=== PATIENT | male | born 1995 | race Caucasian/White ===

== ENCOUNTER 2019-06-18 23:02 | Emergency (ER) | payer SELFPAY ==
[~2019-06-18] VITALS: Ht 170.2 cm; Wt 90.7 kg
[2019-06-18 23:12] VITALS: BP 147/78; Ht 170.2 cm; Wt 90.7 kg
[2019-06-19 00:21] LABS: microscopic required? YES; urine erythrocyte NEGATIVE (NEGATIVE)
== END 2019-06-19 06:24 | disposition left against medical advice (07) ==
LOC: ED 23:02
DX: Z53.21 Procedure and treatment not carried out due to patient leaving prior to being seen by health care provider (principal)
CPT/HCPCS: 87491; 87591

== ENCOUNTER 2019-06-19 13:14 | Emergency (ER) | payer SELFPAY | END 2019-06-19 15:20 | disposition left against medical advice (07) | LOC: ED 13:14 | DX: Z53.21 Procedure and treatment not carried out due to patient leaving prior to being seen by health care provider (principal) ==